=== PATIENT | male | born 1930 | race Caucasian/White ===

== ENCOUNTER → 2017-08-18 | Outpatient (CLI) | payer OTHER ==
[~2017-08-18] MED LIST: ADVIL200 MG PO; CALCIUM 500 WI1 EAC2 PO; CASODEX50 MG PO; FLOMAX0.4 MG PO; HYDROCODON-ACE1 EAC7 PO; LOMOTIL TABLET1 EACH PO; MAALOX/LIDOCAINE; OMEPRAZOLE20 M2 PO; PRILOSEC20 MG PO; TRIAMTERENE-HC1 EACH PO
== END | disposition home or self-care (01) ==
LOC: OPR 09:00 → RAD 09:47 → EDSTATUS 10:00 → RAD 10:00
PROC: 07B43ZX Excision of Left Upper Extremity Lymphatic, Percutaneous Approach, Diagnostic (ICD-10-PCS; principal; 2017-08-18)
DX: D3A.00 Benign carcinoid tumor of unspecified site (principal)
CPT/HCPCS: 76942